=== PATIENT | male | born 1950 | race Caucasian/White ===

== ENCOUNTER 2017-05-16 08:46 | Emergency (ER) | payer OTHER ==
[2017-05-16 09:05] VITALS: BP 136/78
[2017-05-16] MEDS ORDERED: HYDROcodone/ACETAMIN 5-325 MG* 1 TAB PO ONE (09:33)
--- NOTE | 2017-05-16 09:33 | UC ---
Ear Complaint HPI - HPI Summary HPI Summary: c/o sever ear pain l>R and decreased hearing R> L,no fevers, no nasal drainage or cough - History of Current Complaint Chief Complaint: UCEar Stated Complaint: EAR PAIN, HEADACHE Time Seen by Provider: 05/16/17 09:23 Hx Obtained From: Patient Hx From Patient Unobtainable Due To: Dementia Onset/Duration: Gradual Onset, Worse Since - past 2 days---up all last night in pain Severity Initially: Mild Severity Currently: Moderate Pain Intensity: 7 Pain Scale Used: 0-10 Numeric Aggravating Factors: Nothing Alleviating Factors: Nothing Associated Signs/Symptoms: Positive: Hearing Loss - Allergies/Home Medications Allergies/Adverse Reactions: Allergies Allergy/AdvReac Type Severity Reaction Status Date / Time No Known Allergies Allergy Verified 05/16/17 08:58 PMH/Surg Hx/FS Hx/Imm Hx Previously Healthy: Yes - Surgical History Surgical History: None - Family History Known Family History: Positive: None - Social History Occupation: Retired Lives: With Family Alcohol Use: Occasionally Alcohol Amount: 1-2 beers Substance Use Type: None Smoking Status (MU): Never Smoked Tobacco - Immunization History Most Recent Influenza Vaccination: "NEVER HAD THEM" Review of Systems Constitutional: Negative Skin: Negative Eyes: Negative ENT: Negative, Ear Ache Respiratory: Negative Cardiovascular: Negative Gastrointestinal: Negative Genitourinary: Negative Motor: Negative Neurovascular: Negative Musculoskeletal: Negative Neurological: Negative Psychological: Negative Is Patient Immunocompromised?: No All Other Systems Reviewed And Are Negative: Yes Physical Exam Triage Information Reviewed: Yes Appearance: Well-Appearing, No Pain Distress, Well-Nourished Vital Signs: Initial Vital Signs Temp 98 F 05/16/17 08:59 Pulse 114 05/16/17 08:59 Resp 18 05/16/17 08:59 BP 136/78 05/16/17 08:59 Pulse Ox 99 05/16/17 08:59 Vital Signs Reviewed: Yes Eye Exam: Normal Eyes: Positive: Conjunctiva Clear ENT Exam: Normal ENT: Positive: Normal ENT inspection, Hearing grossly normal, Pharynx normal, TMs normal - right after ear irragation, left cloudy, Other: - right canal painful swollen and erythema. Negative: Nasal congestion, Nasal drainage, Tonsillar swelling, Tonsillar exudate, Trismus, Muffled/hoarse voice Dental Exam: Normal Neck exam: Normal Neck: Positive: Supple, Nontender, No Lymphadenopathy Respiratory Exam: Normal Respiratory: Positive: Chest non-tender, Lungs clear, Normal breath sounds, No respiratory distress, No accessory muscle use Cardiovascular Exam: Normal Cardiovascular: Positive: RRR, No Murmur, Pulses Normal, Brisk Capillary Refill Musculoskeletal Exam: Normal Musculoskeletal: Positive: Strength Intact, ROM Intact, No Edema Neurological Exam: Normal Neurological: Positive: Alert, Muscle Tone Normal Psychological Exam: Normal Skin Exam: Normal Ear Complaint Course/Dx - Course Course Of Treatment: Ciprodex right ear, augmentin, ibuprofen follow with pcp - Differential Dx/Diagnosis Differential Diagnosis/HQI/PQRI: Cerumen Impaction, Otitis Externa, Otitis Media , Trauma, URI Provider Diagnoses: Cerumen impaction right ear, otitis externa, right ear--- left ear otitis serrous Discharge - Discharge Plan Condition: Stable Disposition: HOME Prescriptions: Amoxicillin/Clavulanate TAB* [Augmentin TAB 875*] 875 mg PO BID #20 tab Ciproflox/Dexameth OTIC.SUSP* [Ciprodex OTIC.SUSP*] 4 drop .SEE ORDER BID #1 btl Hydrocodone-Acetaminophen [Hydrocodone/Acetaminophen 5-325 mg] 1 tab PO Q6H PRN #16 tab MDD 4 PRN Reason: Pain Patient Education Materials: Otitis Externa (ED), Serous Otitis Media (ED) Referrals: [facility] [Outside] - 5 Days
== END 2017-05-16 10:31 | disposition home or self-care (01) ==
LOC: UCCORT 08:46
DX: H61.21 Impacted cerumen, right ear (principal); H65.92 Unspecified nonsuppurative otitis media, left ear; H60.91 Unspecified otitis externa, right ear; F03.90 Unspecified dementia, unspecified severity, without behavioral disturbance, psychotic disturbance, mood disturbance, and anxiety
CPT/HCPCS: 99203; G0463

== ENCOUNTER → 2017-05-21 11:10 | Emergency (ER) | payer OTHER ==
[2017-05-21 11:47] VITALS: BP 138/82
--- NOTE | 2017-05-21 11:59 | ED ---
Throat Pain/Nasal Congestion - HPI Summary HPI Summary: 67 yr old male with the complaint of hearing loss, ear pain, vomiting, headaches. The patient states 9 days ago he had onset of headache located frontal area, bilateral ear pain, loss of hearing when he was at an auction. His hearing has gotten progressively worse over the past week. He states he had his right ear flushed out, he was put on antibiotics and ear drops and his hearing has gotten progressively worse. He does not go to doctors. He has no primary care doctor. He denies change in his vision, speech. Denies focal weakness, numbness, parasthesias. Denies fever and chills. He states he had vomiting even before being on the oral antibiotics. he has not had headache for 5 days at this point, but had one last week and over the weekend last weekend. - History of Current Complaint Chief Complaint: UCEar Time Seen by Provider: 05/21/17 11:23 - Allergies/Home Medications Allergies/Adverse Reactions: Allergies Allergy/AdvReac Type Severity Reaction Status Date / Time No Known Allergies Allergy Verified 05/21/17 11:47 PMH/Surg Hx/FS Hx/Imm Hx Previously Healthy: Yes Neurological History: Reports: Hx Headaches Infectious Disease History: No Infectious Disease History: Denies: Traveled Outside the [place] in Last 30 Days - Family History Known Family History: Positive: None - Social History Alcohol Use: Occasionally Alcohol Amount: 1-2 beers Substance Use Type: Reports: None Smoking Status (MU): Never Smoked Tobacco Review of Systems Constitutional: Negative Eyes: Negative Positive: Ear Ache Cardiovascular: Negative Respiratory: Negative Positive: Vomiting, Nausea Positive: Headache All Other Systems Reviewed And Are Negative: Yes Physical Exam Triage Information Reviewed: Yes Vital Signs On Initial Exam: Initial Vitals Temp Pulse Resp BP 97.9 F 101 22 138/82 05/21/17 11:21 05/21/17 11:21 05/21/17 11:21 05/21/17 11:21 Vital Signs Reviewed: Yes Appearance: Positive: Well-Appearing, No Pain Distress Head/Face: Positive: Normal Head/Face Inspection. Negative: TMJ Tenderness Eyes: Positive: EOMI ENT: Positive: Normal ENT inspection, TM dull - on left with diminished light reflex. No erythema, no effusion seen. external canal WNL. Right ear external canal with some cerumen, and right TM not easily seen. Neck: Positive: Nontender Respiratory/Lung Sounds: Positive: Clear to Auscultation, Breath Sounds Present Cardiovascular: Positive: RRR. Negative: Murmur Neurological: Positive: Sensory/Motor Intact - except his hearing is quite diminished, I have to talk in a very loud voice for him to hear me., Alert, Oriented to Person Place, Time, CN Intact II-III, Normal Gait Psychiatric: Positive: Normal Diagnostics - Vital Signs Vital Signs Temp Pulse Resp BP 05/21/17 11:21 97.9 F 101 22 138/82 - Laboratory Lab Statement: Any lab studies that have been ordered have been reviewed, and results considered in the medical decision making process. EENT Course/Dx - Course Course Of Treatment: 67 yr old male with acute hearing loss that is progressive over a week and other constellation of symptoms including, headache, nausea vomiting, and ear pain. NAYAN [facility] Margaret the provider. the patient signed out AMA refusing ambulance transfer to the hospital. - Diagnoses Provider Diagnoses: Hearing loss, Vomiting, Ear pain, left Discharge - Discharge Plan Condition: Good Disposition: AGAINST MEDICAL ADVICE Patient Education Materials: Hearing Loss (ED) Referrals: No Primary Care Phys,NOPCP [Primary Care Provider] - Additional Instructions: You need to immediately have someone drive you to the [facility] for further evaluation.
== END | disposition left against medical advice (07) ==
LOC: UCCORT 11:10
DX: H91.90 Unspecified hearing loss, unspecified ear (principal); R11.10 Vomiting, unspecified; H92.02 Otalgia, left ear; Z53.29 Procedure and treatment not carried out because of patient's decision for other reasons
CPT/HCPCS: 99212; G0463